=== PATIENT | male | born 1955 | race Hispanic/Latino ===

== ENCOUNTER 2017-02-24 14:33 | Inpatient (IN) | payer OTHER ==
--- NOTE | 2017-02-24 15:11 | C.PDOC ---
History Of Present Illness <Michael Reyes - Last Filed: 02/24/17 18:03> <Usha Chavez - Last Filed: 02/25/17 03:37> 61 y/o male with a hx of alcohol abuse, comes in for alcohol detox. Last drink was 2 hours ago. Patient denies SI, HI, or somatic complaints. (Michael Reyes) History Per: Patient History/Exam Limitations: no limitations Onset/Duration Of Symptoms: Hrs Current Symptoms Are (Timing): Still Present Suicide/Self Injury Attempted (Context): None Modifying Factor(s): Alcohol Severity: Mild Associated Symptoms: denies: Suicidal Thoughts, Suicidal Plan Involuntary Hold By: None Recent travel outside of the [place]: No Additional History Per: Patient <Michael Reyes - Last Filed: 02/24/17 18:03> <Usha Chavez - Last Filed: 02/25/17 03:37> Time Seen by Provider: 02/24/17 14:53 Chief Complaint (Nursing): Substance Abuse Past Medical History Reviewed: Historical Data, Nursing Documentation, Vital Signs Surgical History: Cholecystectomy Family History: States: Unknown Family Hx - Social History Hx Alcohol Use: Yes Hx Substance Use: No <Michael Reyes - Last Filed: 02/24/17 18:03> Vital Signs: Last Vital Signs Temp 98.3 F 02/25/17 00:17 Pulse 65 02/25/17 00:17 Resp 18 02/25/17 00:17 BP 127/78 02/25/17 00:17 Pulse Ox 98 02/25/17 00:17 Review Of Systems Except As Marked, All Systems Reviewed And Found Negative. Constitutional: Positive for: Other (Acute alcohol intoxication). Negative for : Fever, Chills Cardiovascular: Negative for: Chest Pain Respiratory: Negative for: Shortness of Breath Gastrointestinal: Negative for: Abdominal Pain Psych: Negative for: Suicidal ideation, Other (HI) <Agnes Reyesil - Last Filed: 02/24/17 18:03> Physical Exam - Physical Exam Appears: Non-toxic, No Acute Distress, Other (Alcohol intoxication, (+) AOB. No signs of trauma) Skin: Warm, Dry Head: Atraumatic, Normacephalic Oral Mucosa: Moist Chest: Symmetrical Cardiovascular: Rhythm Regular, No Murmur Respiratory: Normal Breath Sounds, No Rales, No Rhonchi, No Wheezing Gastrointestinal/Abdominal: Soft, No Tenderness Back: No CVA Tenderness Neurological/Psych: Other (awake and alert, no focal deficit) <Michael Reyes - Last Filed: 02/24/17 18:03> ED Course And Treatment - Laboratory Results Result Diagrams: 02/24/17 15:29 02/24/17 15:29 O2 Sat by Pulse Oximetry: 97 (RA) Pulse Ox Interpretation: Normal <Michael Reyes - Last Filed: 02/24/17 18:03> - Laboratory Results Result Diagrams: 02/24/17 15:29 02/24/17 15:29 <Usha Chavez - Last Filed: 02/25/17 03:37> Medical Decision Making <Mihcael Reyes - Last Filed: 02/24/17 18:03> <Usha Chavez - Last Filed: 02/25/17 03:37> Medical Decision Making: * Blood labs * UA Pt is medically cleared. 18:00. Patient will be re-evaluated at 19:30 for sobriety. (Michael Reyes) Disposition <Michael Reyes - Last Filed: 02/24/17 18:03> - Disposition Disposition Time: 20:00 <Usha Chavez - Last Filed: 02/25/17 03:37> - Disposition Disposition: HOSPITALIZED Condition: GOOD - Clinical Impression Clinical Impression: Alcohol dependence - Scribe Statement The provider has reviewed the documentation as recorded by the Scribe <Michael Reyes - Last Filed: 02/24/17 18:03> <Usha Chavez - Last Filed: 02/25/17 03:37> - Scribe Statement [email or web address] All medical record entries made by the Scribe were at my direction and personally dictated by me. I have reviewed the chart and agree that the record accurately reflects my personal performance of the history, physical exam, medical decision making, and the department course for this patient. I have also personally directed, reviewed, and agree with the discharge instructions and disposition. (Michael Reyes) Decision To Admit <Michael Reyes - Last Filed: 02/24/17 18:03> - Pt Status Changed To: Hospital Disposition Of: Inpatient - Admit Certification Admit to Inpatient:: After my assessment, the patient will require hospitalization for at least two midnights. This is because of the severity of symptoms shown, intensity of services needed, and/or the medical risk in this patient being treated as an outpatient. - InPatient: Physician Admission Certification: I certify that this patient requires 2 or more midnights of care for the following reason:: drug/alcohol detox - . Bed Request Type: Detox Admitting Physician: León Pereira <Usha Chavez - Last Filed: 02/25/17 03:37> - . Patient Diagnosis: Alcohol dependence
[2017-02-24 15:34] LABS: BASO % 0.5 % (0.0-2.0); EOS # 0.1 K/uL (0.0-0.7); EOS % 0.8 % (0.0-4.0); HEMATOCRIT 46.2 % (35.0-51.0); LYMPH # 1.2 K/uL (1.0-4.3); LYMPH % 18.9 % (20.0-40.0); MEAN CELL VOLUME 98.3 fL (80.0-94.0); MEAN CORPUSCULAR HEMOGLOBIN 34.6 pg (27.0-31.0); MEAN CORPUSCULAR HGB CONC 35.2 g/dL (33.0-37.0); MEAN PLATELET VOLUME 6.9 fL (7.2-11.7); MONO # 0.3 K/uL (0.0-0.8); MONO % 4.4 % (0.0-10.0); RED CELL DISTRIBUTION WIDTH 13.6 % (11.5-14.5); WHITE BLOOD COUNT 6.4 K/uL (4.8-10.8)
[2017-02-24 15:37] LABS: URINE BILIRUBIN NEGATIVE (NEGATIVE); URINE COLOR Yellow (YELLOW); URINE GLUCOSE (UA) NORMAL (Normal); URINE KETONE NEGATIVE (NEGATIVE); URINE LEUKOCYTE ESTERASE NEG Leu/uL (Negative); URINE PROTEIN NEGATIVE (NEGATIVE); URINE UROBILINOGEN NORMAL mg/dL (0.2-1.0)
[2017-02-24 15:38] LABS: WBC URINE < 1 /hpf (0-5)
[2017-02-24 15:39] LABS: RBC URINE < 1 /hpf (0-3); URINE BLOOD TRACE (NEGATIVE)
[2017-02-24 15:49] LABS: CHLORIDE 96 mmol/L (98-107); POTASSIUM 3.8 mmol/L (3.6-5.2); SODIUM 136 mmol/L (132-148)
[2017-02-24 15:51] LABS: AST/SGOT 137 U/L (17-59); BILIRUBIN,TOTAL 1.7 mg/dL (0.2-1.3); CARBON DIOXIDE 25 mmol/L (22-30); GFR AFRICAN-AMERICAN > 60
[2017-02-24 15:52] LABS: ALKALINE PHOSPHATASE 90 U/L (38-126); ALT/SGPT 105 U/L (21-72); BLOOD UREA NITROGEN 8 mg/dL (9-20); CALCIUM 7.7 mg/dl (8.6-10.4); GLUCOSE,RANDOM 88 mg/dL (75-110)
[2017-02-24 15:53] LABS: ALCOHOL SERUM 259 mg/dl (0-10)
--- NOTE | 2017-02-24 20:04 | PCM.BM ---
<Patty Mcfadden - Last Filed: 02/24/17 20:04> Treatment Plan Problems - Problems identified on initial assessmt Ineffective Coping Skills Date Initiated: 02/24/17 Time Initiated: 20:04 Assessment reference: NA Status: Active Treatment assets and liabiliti Patient Assests: ADL independent Patient Liabilities: substance abuse - Milieu Protocol Maintain good personal hygiene: daily Encourage regular showers, daily Remind patient to perform daily oral care, other Assist patient to perform ADL's Maintain personal safety: every shift Educate patient to report safety concerns to staff, every shift Monitor environment for contraband/sharps Medication safety: Monitor for expected outcome, potential side effects: every shift, Assess barriers to learning: every shift, Assess readiness for medication education: every shift <Eloina Zepeda - Last Filed: 02/25/17 10:02> - Diagnosis (1) Alcohol dependence Status: Acute Interventions: 02/25/17 10:02 * Assess 7x/week regarding severity of withdrawal * Educate regarding risks, benefits, side effects and alternatives of medications * Use Motivational Interviewing for abstinence * Use CBT for relapse prevention * Medication management for withdrawal symptoms * Encourage medication assisted treatment *
[2017-02-24] MEDS ORDERED: Aluminum Hydroxide/Magnesium Hydroxide Susp (30 mL) PO PRN (20:58)
--- NOTE | 2017-02-25 10:05 | PCM.PSYCH ---
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 The patient is here because he drinks more than 15 cans of beer plus more than half pint of liquor every day. He says he relapsed recently however he has been drinking since age 15 and he has a history of and currently has significant withdrawal symptoms. He avoided detox and rehabilitation other than 1 time in 1985 and he used to go to for 8 years and recently resumed. The patient denies drug use and he is not a smoker. He reports depressive symptoms, i.e. anhedonia, poor sleep, poor appetite, low energy, low self-esteem and sadness. He denies suicidal thoughts. No manic or psychotic symptoms but has anxiety He is overweight but has no medical problems otherwise. His liver enzymes are elevated. 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 Denies acute PTSD sxs Family psych history: One brother of alcohol-related complications. Another brother is in recovery from alcohol. Their mother also drank regularly. Medical history: Denied Current Medications: Active Medications Generic Name Dose Route Start Last Admin Trade Name Freq PRN Reason Stop Dose Admin Acetaminophen 650 mg 02/24/17 20:58 Tylenol 325mg Tab PO Q4H PRN Fever greater than 101 F Al Hydrox/Mg Hydrox/Simethicone 30 ml 02/24/17 20:58 Maalox 30 Ml PO TID PRN Indigestion / Heartburn Clonidine HCl 0.1 mg 02/24/17 20:57 Catapres PO Q4H PRN Symptoms of alcohol withdrawl Folic Acid 1 mg 02/25/17 10:00 Folic Acid PO DAILY GAL Gabapentin 100 mg 02/25/17 14:00 Neurontin PO TID GAL Lorazepam 1 mg 02/24/17 20:57 02/24/17 21:23 Ativan PO 1 mg Q4H PRN Administration Symptoms of alcohol withdrawl Lorazepam 0 mg 02/25/17 12:00 Ativan PO 03/01/17 11:59 .TAPER GAL Taper Mirtazapine 15 mg 02/25/17 22:00 Remeron PO HS [facility] Multivitamins 1 tab 02/25/17 10:00 Hexavitamin PO DAILY GAL Ondansetron HCl 4 mg 02/24/17 20:58 02/25/17 08:45 Zofran Tab PO 4 mg Q8 PRN Administration Nausea/Vomiting Tamsulosin HCl 0.4 mg 02/25/17 22:00 Flomax PO HS [facility] Thiamine HCl 100 mg 02/25/17 10:00 Vitamin B1 Tab PO DAILY GAL Past Psychiatric History - Past Psychiatric History Previous Treatment History: None Pertinent Medical Hx (Current Medical&Sleep Prob, Allergies): Allergies Allergy/AdvReac Type Severity Reaction Status Date / Time chlordiazepoxide AdvReac Verified 02/24/17 15:04 [From Librium] Alprazolam [Xanax] 0.5 mg PO TID 02/24/17 Review of Systems - Neurological Neurological: Dizziness, Tremor - Psychiatric Psychiatric: Abnormal Sleep Pattern, Anhedonia, Anxiety, Change in Appetite, Depression, Difficulty Concentrating, Irritability. absent: Hallucinations, Homicidal Ideation, Suicidal Ideation Mental Status Examination - Personal Presentation Personal Presentation: Looks stated age - Affect Affect: Constricted - Motor Activity Motor Activity: Calm - Reliability in Providing Information Reliability in Providing Information: Good - Speech Speech: Organized - Mood Mood: Depressed, Anxious - Formal Thought Process Formal Thought Process: No Impairment - Cognitive Functions Orientation: Person, Place, Situation, Time Sensorium: Alert Attention/Concentration: Attentive Estimate of Intelligence: Average Judgement: Intact, as evidence by: Insight regarding need for hospitalization Memory: Recent intact, as evidence by: Ability to recall events of the day, Remote intact, as evidenced by: Abilit to recall sig. life events - Risk Risk: Seizure, Withdrawal, Diminished functioning - Strength & Assets Inventory Strength & Assets Inventory: Family support, Employment history, Life experience , Cooperative - Limitations Limitations: Living alone DSM 5 DX - DSM 5 DSM 5 Diagnosis: Alcohol withdrawal Alcohol use d/o - severe Depressive d/o - unspecified - Recommended/Plan of Treatment Treatment Recommendations and Plan of Treatment: Ativan detox As needed medications Gabapentin for augmentation and anxiety Attend groups and activities Supportive therapy and psychoeducation [place] for abstinence CBT for relapse prevention Encourage MAT Refer to rehab or IOP Attend self-help groups as well Remeron and cbt/supportive tx for depression and anxiety 34 min Projected ELOS: 03/01/2017 Prognosis: fair Discharge Plan and Discharge Criteria: DC: No significant wdw sx and completion of detox protocol Referral: IOP and consider topamax or naltrexoen (if LFTs come down) - Smoking Cessation Smoking Cessation Initiated: No Reason for not providing: non-smoker
[2017-02-25] MEDS: Multiple Vitamins Tab PO SCH (10:06)
[2017-02-26] MEDS: Multiple Vitamins Tab PO SCH (09:17)
[2017-02-26] MEDS: Hydrocortisone 1% Cream (30 GM) TOP SCH ×2 (10:33→17:51)
[2017-02-26] MEDS: Bacitracin/Neomycin/Polymyxin Oint(30GM) TOP SCH ×2 (10:35→17:51)
--- NOTE | 2017-02-26 13:41 | PCM.PYCHPN ---
Psychiatric Progress Note - Psychiatric Progress Note Patient seen today, length of contact: 16 min Patient Chief Complaint: "So so" Problems Identified/Issues Discussed: The pt is seen, chart reviewed, case discussed with staff. The pt is compliant with medications and reports no side-effects. Symptoms are improving but needs more time to stabilize. After care discussed, support and psychoeducation given. Medication Change: Yes (detox changes daily) Medical Record Reviewed: Yes Mental Status Examination - Cognitive Function Orientation: Person, Place, Situation, Time Memory: Intact Attention: WNL Concentration: Poor Association: WNL Fund of Knowledge: WNL - Mood Mood: Depressed, Anxious - Affect Affect: Constricted - Speech Speech: Appropriate - Formal Thought Process Formal Thought Process: No Impairment - Suicidal Ideation Suicidal Ideation: No - Homicidal Ideation Homicidal Ideation: No Goal/Treatment Plan - Goal/Treatment Plan Need for Continued Stay: Discharge may exacerbated symptoms, Severe functional impairment Progress Toward Problem(s) and Goals/Treatment Plan: Ativan detox As needed medications Gabapentin for augmentation and anxiety Attend groups and activities Supportive therapy and psychoeducation [place] for abstinence CBT for relapse prevention Encourage MAT Refer to rehab or IOP Attend self-help groups as well Remeron and cbt/supportive tx for depression and anxiety Estimated Date of D/C: 03/01/17
[2017-02-27] MEDS: Multiple Vitamins Tab PO SCH (09:08)
[2017-02-27] MEDS: Bacitracin/Neomycin/Polymyxin Oint(30GM) TOP SCH ×2 (09:38→17:13)
[2017-02-27] MEDS: Hydrocortisone 1% Cream (30 GM) TOP SCH ×2 (09:38→17:13)
--- NOTE | 2017-02-27 10:33 | PCM.PYCHPN ---
Psychiatric Progress Note - Psychiatric Progress Note Patient seen today, length of contact: 16 min Patient Chief Complaint: i came to get help.' Problems Identified/Issues Discussed: Patient seen and evaluated, chart reviewed and discussed with the nurse. The patient reports improvement in his mood but still reports withdrawal symptoms including mild shakes, insomnia, anxiety, headaches and sweating. As per the nurse patient remained isolated and confined to his room. Patient denies any suicidal ideation or homicidal ideation. Patient is taking medications and denies any side effects. He needs more time to stabilize. Supportive therapy and psychoeducation were given. Medication Change: Yes (detox changes daily) Medical Record Reviewed: Yes Mental Status Examination - Cognitive Function Orientation: Person, Place, Situation, Time Memory: Intact Attention: WNL Concentration: Poor Association: WNL Fund of Knowledge: WNL - Mood Mood: Depressed, Anxious - Affect Affect: Constricted - Speech Speech: Appropriate - Formal Thought Process Formal Thought Process: No Impairment - Suicidal Ideation Suicidal Ideation: No - Homicidal Ideation Homicidal Ideation: No Goal/Treatment Plan - Goal/Treatment Plan Need for Continued Stay: Discharge may exacerbated symptoms, Severe functional impairment Progress Toward Problem(s) and Goals/Treatment Plan: As needed medications Add more sleep meds Gabapentin for augmentation Attend groups and activities Supportive therapy and psychoeducation [place] for abstinence CBT for relapse prevention Encourage MAT Refer to rehab or IOP Attend self-help groups as well Estimated Date of D/C: 03/01/17 - Smoking Cessation Smoking Cessation Initiated: No
[2017-02-28] MEDS: Bacitracin/Neomycin/Polymyxin Oint(30GM) TOP SCH ×2 (10:16→20:50)
[2017-02-28] MEDS: Multiple Vitamins Tab PO SCH (10:16)
[2017-02-28] MEDS: Hydrocortisone 1% Cream (30 GM) TOP SCH ×2 (10:16→20:50)
[2017-02-28 10:50] VITALS: RESP 18
--- NOTE | 2017-02-28 10:58 | PCM.PYCHPN ---
Psychiatric Progress Note - Psychiatric Progress Note Patient seen today, length of contact: 16 min Patient Chief Complaint: little better. Problems Identified/Issues Discussed: Patient seen and evaluated, chart reviewed and discussed with the nurse. The patient reports improvement in his mood and reports improvement in his sleep. He also reports improvement in the withdrawal symptoms. He denies any suicidal ideation or homicidal ideation. Patient is taking medications and denies any side effects. He needs more time to stabilize. Supportive therapy and psychoeducation were given. Medication Change: Yes (detox changes daily) Medical Record Reviewed: Yes Mental Status Examination - Cognitive Function Orientation: Person, Place, Situation, Time Memory: Intact Attention: WNL Concentration: Poor Association: WNL Fund of Knowledge: WNL - Mood Mood: Depressed, Anxious - Affect Affect: Constricted - Speech Speech: Appropriate - Formal Thought Process Formal Thought Process: No Impairment - Suicidal Ideation Suicidal Ideation: No - Homicidal Ideation Homicidal Ideation: No Goal/Treatment Plan - Goal/Treatment Plan Need for Continued Stay: Discharge may exacerbated symptoms, Severe functional impairment Progress Toward Problem(s) and Goals/Treatment Plan: As needed medications Add more sleep meds Gabapentin for augmentation Attend groups and activities Supportive therapy and psychoeducation [place] for abstinence CBT for relapse prevention Encourage MAT Refer to rehab or IOP Attend self-help groups as well Estimated Date of D/C: 03/01/17
[2017-03-01 05:43] VITALS: O2SAT 99
--- NOTE | 2017-03-01 08:54 | PCM.PYCHDC ---
Mental Status Examination - Mental Status Examination Orientation: Person Discharge Summary - Discharge Note Consultations:: List each consultation separately and include: 1. Reason for request. 2. Findings. 3. Follow-up Summary of Hospital Course include:: 1. Description of specific treatment plan utilized for patients during their course of treatmen. 2. Summarize the time- course for resolution of acute symptoms and/or regressed behaviors. 3. Describe issues identified and worked on during hospitalization. 4. Describe medication utilized. 5. Describe medical problems identified and treated. 6. 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 The patient is here because he drinks more than 15 cans of beer plus more than half pint of liquor every day. He says he relapsed recently however he has been drinking since age 15 and he has a history of and currently has significant withdrawal symptoms. He avoided detox and rehabilitation other than 1 time in 1985 and he used to go to for 8 years and recently resumed. The patient denies drug use and he is not a smoker. He reports depressive symptoms, i.e. anhedonia, poor sleep, poor appetite, low energy, low self-esteem and sadness. He denies suicidal thoughts. No manic or psychotic symptoms but has anxiety He is overweight but has no medical problems otherwise. His liver enzymes are elevated. 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 Denies acute PTSD sxs Family psych history: One brother of alcohol-related complications. Another brother is in recovery from alcohol. Their mother also drank regularly. Medical history: Denied - Diagnosis (1) Alcohol dependence Current Visit: Yes Status: Acute - Final Diagnosis (DSM 5) Condition upon Discharge: GOOD Disposition: HOME/ ROUTINE Follow-up Treatment Plan: Ativan detox As needed medications Gabapentin for augmentation and anxiety Attend groups and activities Supportive therapy and psychoeducation [place] for abstinence CBT for relapse prevention Encourage MAT Refer to rehab or IOP Attend self-help groups as well Remeron and cbt/supportive tx for depression and anxiety
[2017-03-01] MEDS: Hydrocortisone 1% Cream (30 GM) TOP SCH (09:50)
[2017-03-01] MEDS: Bacitracin/Neomycin/Polymyxin Oint(30GM) TOP SCH (09:51)
[2017-03-01] MEDS: Multiple Vitamins Tab PO SCH (09:51)
[2017-03-01 09:56] VITALS: BP 126/78; PULSE 89; TEMP 98
== END 2017-03-01 08:00 | disposition home or self-care (01) | DRG 895 ==
LOC: C.ER 14:33 → C.7D 19:37
PROVIDERS: ADMIT Psychiatry & Neurology Psychiatry; ATTEND Psychiatry & Neurology Psychiatry
PROC: HZ2ZZZZ Detoxification Services for Substance Abuse Treatment (ICD-10-PCS; principal; 2017-02-24)
PROC: HZ59ZZZ Individual Psychotherapy for Substance Abuse Treatment, Supportive (ICD-10-PCS; 2017-02-24)
PROC: HZ46ZZZ Group Counseling for Substance Abuse Treatment, Psychoeducation (ICD-10-PCS; 2017-02-24)
PROC: GZ3ZZZZ Medication Management (ICD-10-PCS; 2017-02-24)
DX: F10.230 Alcohol dependence with withdrawal, uncomplicated (principal); F32.9 Major depressive disorder, single episode, unspecified; F41.9 Anxiety disorder, unspecified; G47.00 Insomnia, unspecified; E66.3 Overweight

== ENCOUNTER 2017-04-15 11:13 | Inpatient (IN) | payer OTHER ==
[2017-04-15 11:14] VITALS: BMI 25.7
[2017-04-15 12:04] LABS: URINE BILIRUBIN NEGATIVE (NEGATIVE); URINE BLOOD NEGATIVE (NEGATIVE); URINE CLARITY Clear (Clear); URINE COLOR Colorless (YELLOW); URINE GLUCOSE (UA) NORMAL (Normal); URINE LEUKOCYTE ESTERASE NEG Leu/uL (Negative); URINE NITRATE NEGATIVE (NEGATIVE); URINE PROTEIN NEGATIVE (NEGATIVE); URINE UROBILINOGEN NORMAL mg/dL (0.2-1.0)
[2017-04-15 12:18] LABS: BASO # 0.1 K/uL (0.0-0.2); BASO % 1.2 % (0.0-2.0); EOS # 0.1 K/uL (0.0-0.7); EOS % 2.7 % (0.0-4.0); HEMOGLOBIN 16.7 g/dL (12.0-18.0); LYMPH # 1.1 K/uL (1.0-4.3); LYMPH % 24.4 % (20.0-40.0); MEAN CELL VOLUME 99.5 fL (80.0-94.0); MEAN CORPUSCULAR HEMOGLOBIN 35.2 pg (27.0-31.0); MEAN CORPUSCULAR HGB CONC 35.4 g/dL (33.0-37.0); MONO # 0.3 K/uL (0.0-0.8); NEUT # 2.9 K/uL (1.8-7.0); NEUT % 64.7 % (50.0-75.0); RBC 4.73 Mil/uL (4.40-5.90); RED CELL DISTRIBUTION WIDTH 13.2 % (11.5-14.5); WHITE BLOOD COUNT 4.5 K/uL (4.8-10.8)
--- NOTE | 2017-04-15 12:18 | C.PDOC ---
History Of Present Illness 61 year old male presents to the ED requesting detox for alcohol. Patient states he drinks alcohol daily and reports his last drink was today [employer]. Patient denies SI/HI, hallucinations, other physical complaints. Time Seen by Provider: 04/15/17 11:31 Chief Complaint (Nursing): Substance Abuse History Per: Patient History/Exam Limitations: no limitations Onset/Duration Of Symptoms: Hrs Current Symptoms Are (Timing): Still Present Suicide/Self Injury Attempted (Context): None Modifying Factor(s): Alcohol Associated Symptoms: denies: Depression, Suicidal Thoughts, Suicidal Plan Involuntary Hold By: None Recent travel outside of the [place]: No Additional History Per: Patient Past Medical History Reviewed: Historical Data, Nursing Documentation, Vital Signs Vital Signs: Last Vital Signs Temp 98.3 F 04/15/17 16:55 Pulse 81 04/15/17 16:55 Resp 18 04/15/17 16:55 BP 148/81 04/15/17 16:55 Pulse Ox 98 04/15/17 16:55 - Medical History PMH: Depression Denies: Diabetes, Hepatitis, HIV, HTN, Chronic Kidney Disease, Seizures, Sexually Transmitted Disease Surgical History: Cholecystectomy - [facility] Procedures DETOXIFICATION SERVICES FOR SUBSTANCE ABUSE TREATMENT (02/24/17) GROUP DEVELOPMENT AND PLANNING ENGINEER FOR SUBSTANCE ABUSE TREATMENT, PSYCHOEDUCATION (02/24/17) INDIV PSYCHOTHERAPY FOR SUBSTANCE ABUSE TREATMENT, SUPPORT (02/24/17) MEDICATION MANAGEMENT (02/24/17) Family History: States: Unknown Family Hx - Social History Hx Alcohol Use: Yes Hx Substance Use: No Review Of Systems Constitutional: Negative for: Fever, Chills Cardiovascular: Negative for: Chest Pain, Palpitations Respiratory: Negative for: Cough, Shortness of Breath Gastrointestinal: Negative for: Nausea, Vomiting, Abdominal Pain Musculoskeletal: Negative for: Back Pain Skin: Negative for: Rash Neurological: Negative for: Weakness, Numbness Psych: Negative for: Suicidal ideation Physical Exam - Physical Exam Appears: Non-toxic, No Acute Distress Skin: Normal Color, Warm, Dry Head: Atraumatic, Normacephalic Nose: No Discharge Oral Mucosa: Moist Neck: Normal ROM, Supple Chest: Symmetrical Cardiovascular: Rhythm Regular, No Murmur Respiratory: Normal Breath Sounds, No Rales, No Rhonchi, No Wheezing Gastrointestinal/Abdominal: Soft, No Tenderness Extremity: Normal ROM, No Pedal Edema, No Calf Tenderness, No Deformity Neurological/Psych: Oriented x3 ED Course And Treatment - Laboratory Results Result Diagrams: 04/15/17 11:51 04/15/17 11:51 O2 Sat by Pulse Oximetry: 20 Medical Decision Making Medical Decision Making: Impression : ETOH detox Plan: * UA * Blood work - drug screen Patient is medically cleared for detox. Disposition - Disposition Disposition: HOSPITALIZED Disposition Time: 12:30 Condition: STABLE - Clinical Impression Clinical Impression: Drug dependence, Alcohol dependence - Scribe Statement The provider has reviewed the documentation as recorded by the Scribe Zohaib Wills All medical record entries made by the Scribe were at my direction and personally dictated by me. I have reviewed the chart and agree that the record accurately reflects my personal performance of the history, physical exam, medical decision making, and the department course for this patient. I have also personally directed, reviewed, and agree with the discharge instructions and disposition.
[2017-04-15 12:19] LABS: ALB/GLOB RATIO 1.4 (1.0-2.1); ALBUMIN 4.1 g/dL (3.5-5.0); ALT/SGPT 57 U/L (21-72); AST/SGOT 76 U/L (17-59); BLOOD UREA NITROGEN 8 mg/dL (9-20); CALCIUM 8.2 mg/dl (8.6-10.4); GFR AFRICAN-AMERICAN > 60; GFR NON-AFRICAN AMERICAN > 60
[2017-04-15 12:26] LABS: BARBITURATES, UR NEGATIVE (NEGATIVE); BENZODIAZEPINES, UR NEGATIVE (NEGATIVE); OPIATES, UR NEGATIVE (NEGATIVE); PHENCYCLIDINE, UR NEGATIVE (NEGATIVE)
--- NOTE | 2017-04-15 18:16 | PCM.BM ---
<Isela Reddy - Last Filed: 04/15/17 18:14> Treatment Plan Problems - Problems identified on initial assessmt Alcohol dependence Date Initiated: 04/15/17 Time Initiated: 17:30 Assessment reference: NA Status: Active Treatment assets and liabiliti Patient Assests: cooperative, ADL independent, negotiates basic needs Patient Liabilities: live alone, substance abuse - Milieu Protocol Maintain good personal hygiene: daily Encourage regular showers, daily Remind patient to perform daily oral care, daily Assist patient to perform ADL's Conduct patient checks and document Observation sheet: Q15 minutes Maintain personal safety: every shift Educate patient to report safety concerns to staff, every shift Monitor environment for contraband/sharps Medication safety: Monitor for expected outcome, potential side effects: every shift, Assess barriers to learning: every shift, Assess readiness for medication education: every shift <Cassie Hayes - Last Filed: 04/20/17 08:39> Family Contact Family involvement: Famliy/SO not involved Family contact: Patient agrees to contact - Goals for Treatment Patient goals for treatment: COMPLETE DETOX AND ATTEND AA MEETINGS IN CONJUNCTION WITH O/P THERAPY. Discharge/Continuing Care - Education Needs Education Needs: Patient Medication, Patient Diagnosis/Disease Process, Patient Coping Skills, Patient Anger Management skills, Patient Placement options, Patient Community resources - Discharge Discharge Criteria: No longer exhibiting s/s of withdrawal, Reduction of target symptoms Discharge to:: Home - Treatment Team Participation Patient/Family/SO Statement: 04/20/17 08:39 "I HAVE A SPONSOR IN AA BUT I'LL SUPPLEMENT MEETINGS WITH OUTPATIENT..." Discussed with Family/SO: No Was Patient/Family/SO present at Treatment Team Meeting: Yes <Eloina Zepeda - Last Filed: 04/21/17 08:47> - Diagnosis (1) Alcohol dependence Status: Acute Interventions: 04/21/17 08:47 * Assess 7x/week regarding severity of withdrawal * Educate regarding risks, benefits, side effects and alternatives of medications * Use Motivational Interviewing for abstinence * Use CBT for relapse prevention * Medication management for withdrawal symptoms * Encourage medication assisted treatment *
[2017-04-16] MEDS: Multiple Vitamins Tab PO SCH (10:03)
[2017-04-16] MEDS: Aluminum Hydroxide/Magnesium Hydroxide Susp (30 mL) PO PRN (13:55)
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
[2017-04-17] MEDS: Multiple Vitamins Tab PO SCH (09:37)
[2017-04-17] MEDS: Aluminum Hydroxide/Magnesium Hydroxide Susp (30 mL) PO PRN ×2 (10:07→15:39)
--- NOTE | 2017-04-17 11:19 | RAD ---
PROCEDURE: Left Hand Radiographs. HISTORY: swelling to left hand COMPARISON: None. FINDINGS: BONES: Normal. No fracture. JOINTS: Arthritic and degenerative changes are noted at the joint of the left hand. SOFT TISSUES: Normal. OTHER FINDINGS: None. IMPRESSION: No evidence of acute fracture or dislocation. Arthritic and degenerative changes.
[2017-04-18] MEDS: Multiple Vitamins Tab PO SCH (10:00)
[2017-04-18] MEDS: Aluminum Hydroxide/Magnesium Hydroxide Susp (30 mL) PO PRN (10:58)
--- NOTE | 2017-04-18 21:00 | PCM.PYCHPN ---
Psychiatric Progress Note - Psychiatric Progress Note Patient seen today, length of contact: 15 MIN Patient Chief Complaint: I AM FEELING BETTER BUT I NEED TO BE DISCHARGED EARLY WEDNESDAY. Problems Identified/Issues Discussed: POST ACUTE WITHDRAWAL SYNDROME AA MEETINGS SINCE HE RETIRED WHAT GTO DO WITH HIS FREE TIME Medical Problems: NOTHING NEW Diagnostic Results: REVIEWED DSM 5 Symptoms Update: LESS ANXIOUS LESS DEPRESSED HOPEFUL Medication Change: No Medical Record Reviewed: Yes Mental Status Examination - Cognitive Function Orientation: Person, Place, Situation, Time Memory: Intact Attention: WNL Concentration: WNL Association: WNL Fund of Knowledge: WNL - Mood Mood: Depressed, Anxious - Affect Affect: Constricted - Speech Speech: Appropriate - Suicidal Ideation Suicidal Ideation: No - Homicidal Ideation Homicidal Ideation: No Goal/Treatment Plan - Goal/Treatment Plan Need for Continued Stay: Discharge may exacerbated symptoms Progress Toward Problem(s) and Goals/Treatment Plan: ALCOHOL WITHDRAWAL LIBRIUM TAPER ALCOHOL USE DISORDER ID CBT GROUP.MILIEU RECREATIONAL THERAPY SUPPORTIVE PSYCHOTHERAPY Estimated Date of D/C: 04/19/17 - Smoking Cessation Smoking Cessation Initiated: Yes
--- NOTE | 2017-04-18 21:07 | PCM.PYCHPN ---
Psychiatric Progress Note - Psychiatric Progress Note Patient seen today, length of contact: 15 MIN Patient Chief Complaint: MY HAND IS SWOLLEN Problems Identified/Issues Discussed: AFTERCARE IOP AA MEETINGS PLANS FOR THE FUTURE Medical Problems: EDEMATOUS LEFT HAND Diagnostic Results: XRAY NO FRACTURE ARTHRITIC CHANGES DSM 5 Symptoms Update: ANXIOUS Medication Change: Yes (LIBRIUM TAPER) Medical Record Reviewed: Yes Mental Status Examination - Cognitive Function Orientation: Person, Place, Situation, Time Memory: Intact Attention: WNL Association: WN Fund of Knowledge: WNL - Mood Mood: Depressed, Anxious - Affect Affect: Constricted - Speech Speech: Appropriate - Formal Thought Process Formal Thought Process: No Impairment - Suicidal Ideation Suicidal Ideation: No Goal/Treatment Plan - Goal/Treatment Plan Need for Continued Stay: Discharge may exacerbated symptoms Progress Toward Problem(s) and Goals/Treatment Plan: ALCOHOL WITHDRAWAL LIBRIUM TAPER ALCOHOL USE DISORDER DC CBT GROUP.MILIEU RECREATIONAL THERAPY SUPPORTIVE PSYCHOTHERAPY Estimated Date of D/C: 04/19/17 - Smoking Cessation Smoking Cessation Initiated: Yes
[2017-04-19] MEDS: Multiple Vitamins Tab PO SCH (09:42)
[2017-04-19] MEDS ORDERED: Pneumococcal 23-Valent Vaccine IM ONE (10:00)
[2017-04-19] MEDS ORDERED: Influenza Vaccine 60 mcg/0.5 mL SYR (4YR UP) IM ONE (10:00)
--- NOTE | 2017-04-19 10:04 | PCM.PYCHPN ---
Psychiatric Progress Note - Psychiatric Progress Note Patient seen today, length of contact: 15 MIN Patient Chief Complaint: I am feeling little anxious.' Problems Identified/Issues Discussed: Patient seen and evaluated, chart reviewed and discussed with the nurse. Patient reports improvement in the withdrawal symptoms but still reports anxiety. He reports irritable mood but denies any feelings of hopelessness and helplessness. He denies any SI/HI/AVH. Patient remained isolated, confined and withdrawn. He is taking medication and denies any side effects. He needs more time for stabilization. Supportive therapy and psychoeducation were given. Medication Change: Yes (LIBRIUM TAPER) Medical Record Reviewed: Yes Mental Status Examination - Cognitive Function Orientation: Person, Place, Situation, Time Memory: Intact Attention: WNL Association: WNL Fund of Knowledge: Poor - Mood Mood: Depressed, Anxious - Affect Affect: Constricted - Speech Speech: Appropriate - Formal Thought Process Formal Thought Process: No Impairment - Suicidal Ideation Suicidal Ideation: No - Homicidal Ideation Homicidal Ideation: No Goal/Treatment Plan - Goal/Treatment Plan Need for Continued Stay: Discharge may exacerbated symptoms Progress Toward Problem(s) and Goals/Treatment Plan: Alcohol use disorder, severe, dependence Alcohol withdrawal symptoms, Pain in left hand PTSD chronic Depressive disorder unspecified type [facility] Gabapentin for augmentation As needed meds and vitamins Attend groups and activities WA for abstinence and CBT for relapse prevention Support and psychoeducation Consider and encourage MAT XRay of Left hand Refer to after care Estimated Date of D/C: 04/19/17 - Smoking Cessation Smoking Cessation Initiated: No
[2017-04-19] MEDS: Aluminum Hydroxide/Magnesium Hydroxide Susp (30 mL) PO PRN ×2 (13:11→21:03)
--- NOTE | 2017-04-20 08:38 | PCM.PYCHDC ---
Mental Status Examination - Mental Status Examination Orientation: Person, Place, Situation, Time Discharge Summary - Discharge Note Reason for Hospitalization: Alcohol detox Consultations:: List each consultation separately and include: 1. Reason for request. 2. Findings. 3. Follow-up Summary of Hospital Course include:: 1. Description of specific treatment plan utilized for patients during their course of treatmen. 2. Summarize the time- course for resolution of acute symptoms and/or regressed behaviors. 3. Describe issues identified and worked on during hospitalization. 4. Describe medication utilized. 5. Describe medical problems identified and treated. 6. Reassessment of suicide risk Summary of Hospital Course: The pt was admitted and started on treatment with psychotherapy, support, psychoeducation and medications. AR and CBT used. The pt attended groups and activities, as well as milieu therapy. All the risks and benefits of medications are discussed and the patient understood and agreed. The pt improved with the treatments provided. After care discussed with the patient. He will go to [facility] program Warned about risks of benzos - Final Diagnosis (DSM 5) Condition upon Discharge: IMPROVED DSM 5: Alcohol use disorder, severe, dependence Alcohol withdrawal symptoms, Pain in left hand PTSD chronic Depressive disorder unspecified type Disposition: HOME/ ROUTINE Follow-up Treatment Plan: Continue below medications after discharge. Follow after care plan as discussed. Use relapse prevention skills Return to ER or call 911 if suicidal, homicidal or symptoms relapse. Stay away from stress, alcohol and drugs. See primary doctor regularly and get labs. Prescriptions/Medication Reconciliation: Gabapentin [Neurontin] 300 mg PO TID #90 cap Multivitamins [Hexavitamin] 1 tab PO DAILY #30 tab traZODone [Desyrel] 50 mg PO HS PRN #30 tab PRN Reason: Insomnia - Smoking Cessation Smoking Cessation Medication prescribed: No - Antipsychotic Medications Pt discharged on 2 or more routine antipsychotic medications: No
[2017-04-20 08:54] VITALS: BP 135/80; PULSE 80; RESP 20; TEMP 98.8; O2SAT 99
[2017-04-20] MEDS: Multiple Vitamins Tab PO SCH (09:04)
== END 2017-04-20 09:05 | disposition home or self-care (01) | DRG 895 ==
LOC: C.ER 11:13 → C.7D 16:47
PROVIDERS: ADMIT Psychiatry & Neurology Psychiatry; ATTEND Psychiatry & Neurology Psychiatry
PROC: HZ2ZZZZ Detoxification Services for Substance Abuse Treatment (ICD-10-PCS; principal; 2017-04-15)
PROC: HZ59ZZZ Individual Psychotherapy for Substance Abuse Treatment, Supportive (ICD-10-PCS; 2017-04-15)
PROC: HZ46ZZZ Group Counseling for Substance Abuse Treatment, Psychoeducation (ICD-10-PCS; 2017-04-15)
PROC: GZ3ZZZZ Medication Management (ICD-10-PCS; 2017-04-15)
DX: F10.230 Alcohol dependence with withdrawal, uncomplicated (principal); F32.9 Major depressive disorder, single episode, unspecified; F43.12 Post-traumatic stress disorder, chronic; M19.042 Primary osteoarthritis, left hand; E66.3 Overweight; Z91.410 Personal history of adult physical and sexual abuse

== ENCOUNTER 2018-04-13 13:30 | Emergency (ER) | payer OTHER ==
[2018-04-13 13:30] VITALS: BMI 27.1
[2018-04-13 14:22] VITALS: BP 100/60; PULSE 79; RESP 16; TEMP 98.3; O2SAT 95
== END 2018-04-13 14:20 | disposition left against medical advice (07) ==
LOC: C.ER 13:30
DX: Z02.89 Encounter for other administrative examinations (principal); F19.10 Other psychoactive substance abuse, uncomplicated

== ENCOUNTER 2018-05-15 12:48 | Inpatient (IN) | payer OTHER ==
[2018-05-15 12:49] VITALS: BMI 27.1
--- NOTE | 2018-05-15 13:36 | C.PDOC ---
History Of Present Illness 63 y/o male with PMH of substance abuse, alcohol abuse, depression presents to ED requesting detox from alcohol and xanax. Last use this morning. Tolerating PO per baseline. Admits to intermittent visual hallucinations. No somatic c omplaints. No SI, HI, fever, chills, abdominal pain, chest pain, SOB, nausea, vomiting, seizure, weakness, numbness, paresthesia, or any other associated symptoms. Time Seen by Provider: 05/15/18 13:18 Chief Complaint (Nursing): Substance Abuse Past Medical History Vital Signs: Last Vital Signs Temp 98.5 F 05/15/18 13:04 Pulse 71 05/15/18 13:04 Resp 18 05/15/18 13:04 BP 107/68 05/15/18 13:04 Pulse Ox 100 05/15/18 13:04 - Medical History PMH: Depression Denies: Diabetes, Hepatitis, HIV, HTN, Chronic Kidney Disease, Seizures, Sexually Transmitted Disease Surgical History: Cholecystectomy - [facility] Procedures DETOXIFICATION SERVICES FOR SUBSTANCE ABUSE TREATMENT (04/15/17) GROUP CLINICAL NURSE FOR SUBSTANCE ABUSE TREATMENT, PSYCHOEDUCATION (04/15/17) INDIV PSYCHOTHERAPY FOR SUBSTANCE ABUSE TREATMENT, SUPPORT (04/15/17) MEDICATION MANAGEMENT (04/15/17) Family History: States: Unknown Family Hx - Social History Hx Alcohol Use: Yes Hx Substance Use: Yes - Immunization History Hx Tetanus Toxoid Vaccination: No Hx Influenza Vaccination: No Hx Pneumococcal Vaccination: No Review Of Systems Except As Marked, All Systems Reviewed And Found Negative. Constitutional: Negative for: Fever, Chills Eyes: Negative for: Vision Change ENT: Negative for: Nose Discharge, Nose Congestion Cardiovascular: Negative for: Chest Pain, Palpitations Respiratory: Negative for: Cough, Shortness of Breath Gastrointestinal: Negative for: Nausea, Vomiting, Abdominal Pain Genitourinary: Negative for: Dysuria, Frequency, Hematuria Musculoskeletal: Negative for: Neck Pain, Back Pain Skin: Negative for: Rash Neurological: Negative for: Weakness, Numbness, Headache, Dizziness Physical Exam - Physical Exam Appears: Well, Non-toxic, No Acute Distress Skin: Normal Color, Warm, Dry Head: Atraumatic, Normacephalic Eye(s): bilateral: Normal Inspection, PERRL, EOMI Nose: Normal Oral Mucosa: Moist Throat: Normal Neck: Normal, Normal ROM, No Midline Cervical Tenderness, No Paracervical Tenderness Cardiovascular: Rhythm Regular Respiratory: Normal Breath Sounds Gastrointestinal/Abdominal: Normal Exam, Bowel Sounds (normoactive), Soft, No Tenderness Back: Normal Inspection, No CVA Tenderness Extremity: Normal ROM, Capillary Refill (<2s) Extremity: Bilateral: Atraumatic, Normal ROM Pulses: Left Radial: Normal, Right Radial: Normal Neurological/Psych: Oriented x3, Normal Speech, Normal Motor, Normal Sensation Gait: Steady ED Course And Treatment - Laboratory Results Result Diagrams: 05/15/18 14:10 05/15/18 14:10 Lab Interpretation: No Acute Changes ECG: Viewed By Me (Interpreted by ED attending Dr Antony) ECG Interpretation: No Acute Changes Interpretation Of ECG: Rate 74; NSR; LAD; No STEMI, nonspecific ST/T wave changes Rate From EC O2 Sat by Pulse Oximetry: 100 - Other Rad CXR X-Ray: Viewed By Me, Read By Radiologist Interpretation: Findings: Mild patchy increased markings at the right lung base. Heart size within normal limits. Impression: Mild patchy increased markings at the right lung base. Medical Decision Making Medical Decision Making: Initial Plan: * CBC, CMP * MG, Phos * Acetaminophen, Salicylate * Alcohol Level * UA * UDS * EKG * CXR Labwork unremarkable UDS positive for cannabinoids, benzodiazepines Alcohol level 170 EKG no acute ischemic changes CXR no active disease 15:20 Patient is medically cleared for admission. Will be admitted under Dr. Quiroga for detox, per crisis team. Disposition - Disposition Disposition: HOSPITALIZED Disposition Time: 15:20 Condition: STABLE - Clinical Impression Clinical Impression: Alcohol intoxication, Medical clearance for psychiatric admission
[2018-05-15 13:43] LABS: SQUAMOUS EPITHIAL < 1 /hpf (0-5); URINE BILIRUBIN NEGATIVE (NEGATIVE); URINE BLOOD NEGATIVE (NEGATIVE); URINE CLARITY Clear (Clear); URINE COLOR Straw (YELLOW); URINE GLUCOSE (UA) NORMAL (Normal); URINE LEUKOCYTE ESTERASE NEG Leu/uL (Negative); URINE PROTEIN NEGATIVE (NEGATIVE); URINE UROBILINOGEN NORMAL mg/dL (0.2-1.0)
[2018-05-15 13:48] LABS: BARBITURATES, UR NEGATIVE (NEGATIVE); OPIATES, UR NEGATIVE (NEGATIVE); PHENCYCLIDINE, UR NEGATIVE (NEGATIVE)
[2018-05-15 13:50] LABS: BENZODIAZEPINES, UR POSITIVE (NEGATIVE)
[2018-05-15 14:15] LABS: BASO % 1.1 % (0.0-2.0); EOS # 0.1 K/uL (0.0-0.7); EOS % 2.6 % (0.0-4.0); HEMOGLOBIN 15.5 g/dL (12.0-18.0); LYMPH # 1.4 K/uL (1.0-4.3); LYMPH % 32.4 % (20.0-40.0); MEAN CORPUSCULAR HGB CONC 33.7 g/dL (33.0-37.0); MEAN PLATELET VOLUME 7.7 fL (7.2-11.7); MONO # 0.4 K/uL (0.0-0.8); MONO % 8.5 % (0.0-10.0); NEUT # 2.4 K/uL (1.8-7.0); NEUT % 55.4 % (50.0-75.0); NRBC % 0.1 % (0.0-2.0); RBC 4.7 Mil/uL (4.40-5.90); RED CELL DISTRIBUTION WIDTH 12.1 % (11.5-14.5); WHITE BLOOD COUNT 4.3 K/uL (4.8-10.8)
[2018-05-15 14:37] LABS: ACETAMINOPHEN < 10.0 ug/mL (10.0-30.0); ALB/GLOB RATIO 1.9 (1.0-2.1); ALBUMIN 4.4 g/dL (3.5-5.0); ALT/SGPT 59 U/L (21-72); AST/SGOT 59 U/L (17-59); BLOOD UREA NITROGEN 11 mg/dL (9-20); CALCIUM 8.5 mg/dl (8.6-10.4); GFR NON-AFRICAN AMERICAN > 60; SALICYLATE < 1.0 mg/dL 1
--- NOTE | 2018-05-15 18:36 | PCM.BM ---
<Lauren Mckinley - Last Filed: 05/15/18 18:32> Treatment Plan Problems - Problems identified on initial assessmt Low motivation to change Date Initiated: 05/15/18 Time Initiated: 18:34 Assessment reference: NA Status: Active denial Date Initiated: 05/15/18 Time Initiated: 18:34 Assessment reference: NA Status: Active Knowledge deficit: Alcohol Use Date Initiated: 05/15/18 Time Initiated: 18:34 Assessment reference: NA Status: Active Treatment assets and liabiliti Patient Assests: cooperative, ADL independent, negotiates basic needs, cognitively intact Patient Liabilities: substance abuse (Alcohol) - Milieu Protocol Maintain good personal hygiene: daily Encourage regular showers, daily Remind patient to perform daily oral care, daily Assist patient to perform ADL's Conduct patient checks and document Observation sheet: Q15 minutes Maintain personal safety: every shift Educate patient to report safety concerns to staff, every shift Monitor environment for contraband/sharps Medication safety: Monitor for expected outcome, potential side effects: every shift, Assess barriers to learning: every shift, Assess readiness for medication education: every shift <Cassie Hayes - Last Filed: 05/18/18 12:05> Family Contact Family involvement: Famliy/SO not involved - Goals for Treatment Patient goals for treatment: Complete detox and transition to outpatient therapy program. Discharge/Continuing Care - Education Needs Education Needs: Patient Medication, Patient Diagnosis/Disease Process, Patient Coping Skills, Patient Anger Management skills, Patient Placement options, Patient Community resources - Discharge Discharge Criteria: No longer exhibiting s/s of withdrawal, Reduction of target symptoms Discharge to:: Home - Treatment Team Participation Patient/Family/SO Statement: 05/18/18 12:06 "I'll go to [facility]...I ain't got a problem with that..." Discussed with Family/SO: No Was Patient/Family/SO present at Treatment Team Meeting: Yes <Eloina Zepeda - Last Filed: 05/18/18 13:51> - Diagnosis (1) Alcohol dependence Status: Acute Interventions: 05/17/18 13:51 * Assess 7x/week regarding severity of withdrawal * Educate regarding risks, benefits, side effects and alternatives of medications * Use Motivational Interviewing for abstinence * Use CBT for relapse prevention * Medication management for withdrawal symptoms * Encourage medication assisted treatment *
--- NOTE | 2018-05-15 18:47 | RAD ---
Chest x-ray two views HISTORY: Detox. Comparison: None available. Findings: Mild patchy increased markings at the right lung base. Heart size within normal limits. Impression: Mild patchy increased markings at the right lung base.
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
[2018-05-16] MEDS: Multiple Vitamins Tab PO SCH (11:06)
[2018-05-16] MEDS ORDERED: Vitamins A & D Oint UD Foilpak TOP PRN (19:31)
[2018-05-17] MEDS: Multiple Vitamins Tab PO SCH (09:40)
--- NOTE | 2018-05-17 12:01 | PCM.PYCHPN ---
Psychiatric Progress Note - Psychiatric Progress Note Patient seen today, length of contact: 16 min Patient Chief Complaint: "I'm sweaty, shaky" Problems Identified/Issues Discussed: The pt is seen, chart reviewed, case discussed with staff. The pt is compliant with medications and reports no side-effects. Symptoms are improving but needs more time to stabilize. Pt attends groups and activities. Support given, psycho-education provided. After care discussed. Medication Change: Yes (detox changes daily) Medical Record Reviewed: Yes Mental Status Examination - Cognitive Function Orientation: Person, Place, Situation, Time Memory: Intact Attention: WNL Concentration: Poor Association: WNL Fund of Knowledge: WNL - Mood Mood: Depressed, Anxious - Affect Affect: Constricted - Speech Speech: Appropriate - Formal Thought Process Formal Thought Process: No Impairment - Suicidal Ideation Suicidal Ideation: No - Homicidal Ideation Homicidal Ideation: No Goal/Treatment Plan - Goal/Treatment Plan Need for Continued Stay: Discharge may exacerbated symptoms, Severe functional impairment Progress Toward Problem(s) and Goals/Treatment Plan: Ativan detox continues Gabapentin for augmentation Remeron for sleep and mood As needed meds and vitamins Attend groups and activities [place] for abstinence and CBT for relapse prevention Support and psychoeducation Consider and encourage MAT Refer to after care - inpatient or IOP/AA MAT (naltrexone, antabuse etc) recommended but he is still unsure Estimated Date of D/C: 05/20/18
[2018-05-18] MEDS: Multiple Vitamins Tab PO SCH (09:16)
--- NOTE | 2018-05-18 13:51 | PCM.PYCHPN ---
Psychiatric Progress Note - Psychiatric Progress Note Patient seen today, length of contact: 17 min Patient Chief Complaint: "I'm still withdrawing" Problems Identified/Issues Discussed: The pt is seen, chart reviewed, case discussed with staff. Support and psychoeducation given, CBT and [place] used briefly No new symptoms reported, improving slowly and needs more time No SEs from medications, risks discussed. After care discussed Medication Change: Yes (detox changes daily) Medical Record Reviewed: Yes Mental Status Examination - Cognitive Function Orientation: Person, Place, Situation, Time Memory: Intact Attention: WNL Concentration: Poor Association: WNL Fund of Knowledge: WNL - Mood Mood: Depressed, Anxious - Affect Affect: Constricted - Speech Speech: Appropriate - Formal Thought Process Formal Thought Process: No Impairment - Suicidal Ideation Suicidal Ideation: No - Homicidal Ideation Homicidal Ideation: No Goal/Treatment Plan - Goal/Treatment Plan Need for Continued Stay: Discharge may exacerbated symptoms, Severe functional impairment Progress Toward Problem(s) and Goals/Treatment Plan: Ativan detox continues Gabapentin for augmentation Remeron for sleep and mood As needed meds and vitamins Attend groups and activities [place] for abstinence and CBT for relapse prevention Support and psychoeducation Consider and encourage MAT Refer to after care - inpatient or IOP/AA MAT (naltrexone, antabuse etc) recommended but he is still unsure Estimated Date of D/C: 05/20/18
[2018-05-18] MEDS: Pantoprazole 20 mg EC Tab PO SCH (17:37)
--- NOTE | 2018-05-18 22:35 | CARD ---
APPROVED REPORT Date of service: 05/15/2018 EKG Measurement Heart [id number] <Conclusion> Normal sinus rhythm Left axis deviation Inferior infarct, age undetermined Abnormal ECG
[2018-05-19] MEDS: Multiple Vitamins Tab PO SCH (09:14)
[2018-05-19] MEDS: Pantoprazole 20 mg EC Tab PO SCH (09:14)
--- NOTE | 2018-05-19 11:54 | PCM.PYCHPN ---
Psychiatric Progress Note - Psychiatric Progress Note Patient seen today, length of contact: 16 min Patient Chief Complaint: "I'm not well yet, anxious" Problems Identified/Issues Discussed: The pt is seen, chart reviewed, case discussed with staff. Patient states that he is ready and willing to "dig in towards" quitting. The pt is compliant with medications and reports no side-effects. Symptoms are improving but needs more time to stabilize. Pt attends groups and activities. Support given, psycho-education provided. After care discussed. He is aloof but agreed with [facility] for now Medication Change: Yes (detox changes daily) Medical Record Reviewed: Yes Mental Status Examination - Cognitive Function Orientation: Person, Place, Situation, Time Memory: Intact Attention: WNL Concentration: Poor Association: Loose Fund of Knowledge: WNL - Mood Mood: Depressed, Anxious - Affect Affect: Constricted - Speech Speech: Appropriate - Formal Thought Process Formal Thought Process: No Impairment - Suicidal Ideation Suicidal Ideation: No - Homicidal Ideation Homicidal Ideation: No Goal/Treatment Plan - Goal/Treatment Plan Need for Continued Stay: Discharge may exacerbated symptoms, Severe functional impairment Progress Toward Problem(s) and Goals/Treatment Plan: Ativan detox continues Gabapentin for augmentation Remeron for sleep and mood As needed meds and vitamins Attend groups and activities [place] for abstinence and CBT for relapse prevention Support and psychoeducation Consider and encourage MAT Refer to after care - inpatient or IOP/AA MAT (naltrexone, antabuse etc) recommended, patient apprehensive about taking in any foreign substances when he is clean. Estimated Date of D/C: 05/20/18
[2018-05-19 18:49] VITALS: TEMP 97.6
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
[2018-05-20 08:17] VITALS: BP 155/98; PULSE 73; RESP 20; O2SAT 98
== END 2018-05-20 08:15 | disposition home or self-care (01) | DRG 895 ==
LOC: C.ER 12:48 → C.7D 16:08
PROVIDERS: ADMIT Psychiatry & Neurology Psychiatry; ATTEND Psychiatry & Neurology Psychiatry
PROC: HZ2ZZZZ Detoxification Services for Substance Abuse Treatment (ICD-10-PCS; principal; 2018-05-15)
PROC: HZ52ZZZ Individual Psychotherapy for Substance Abuse Treatment, Cognitive-Behavioral (ICD-10-PCS; 2018-05-15)
PROC: HZ59ZZZ Individual Psychotherapy for Substance Abuse Treatment, Supportive (ICD-10-PCS; 2018-05-15)
PROC: HZ56ZZZ Individual Psychotherapy for Substance Abuse Treatment, Psychoeducation (ICD-10-PCS; 2018-05-15)
DX: F10.231 Alcohol dependence with withdrawal delirium (principal); F32.9 Major depressive disorder, single episode, unspecified; F43.12 Post-traumatic stress disorder, chronic; Z91.410 Personal history of adult physical and sexual abuse; E66.3 Overweight

== ENCOUNTER 2018-08-22 14:19 | Emergency (ER) | payer OTHER ==
[2018-08-22 14:19] VITALS: BMI 38.0
[2018-08-22 14:30] VITALS: BP 122/83; PULSE 75; RESP 18; TEMP 98.6; O2SAT 95
[2018-08-22 15:40] LABS: BASO # 0.1 K/uL (0.0-0.2); BASO % 0.9 % (0.0-2.0); EOS # 0.2 K/uL (0.0-0.7); EOS % 3.4 % (0.0-4.0); HEMOGLOBIN 16.6 g/dL (12.0-18.0); LYMPH # 1.9 K/uL (1.0-4.3); LYMPH % 27.9 % (20.0-40.0); MEAN CORPUSCULAR HEMOGLOBIN 35.4 pg (27.0-31.0); MEAN CORPUSCULAR HGB CONC 35.1 g/dL (33.0-37.0); MEAN PLATELET VOLUME 7.2 fL (7.2-11.7); MONO # 0.5 K/uL (0.0-0.8); MONO % 7.9 % (0.0-10.0); NEUT # 4.1 K/uL (1.8-7.0); NEUT % 59.9 % (50.0-75.0); NRBC % 0.1 % (0.0-2.0); RBC 4.7 Mil/uL (4.40-5.90); RED CELL DISTRIBUTION WIDTH 14.8 % (11.5-14.5)
[2018-08-22 15:49] LABS: MEAN CELL VOLUME 100.8 fL (80.0-94.0); WHITE BLOOD COUNT 6.9 K/uL (4.8-10.8)
[2018-08-22 15:58] LABS: URINE BILIRUBIN NEGATIVE (NEGATIVE); URINE BLOOD NEGATIVE (NEGATIVE); URINE CLARITY Clear (Clear); URINE COLOR Yellow (YELLOW); URINE GLUCOSE (UA) NORMAL (Normal); URINE LEUKOCYTE ESTERASE NEG Leu/uL (Negative); URINE PROTEIN NEGATIVE (NEGATIVE); URINE UROBILINOGEN NORMAL mg/dL (0.2-1.0)
[2018-08-22 16:01] LABS: ALB/GLOB RATIO 1.6 (1.0-2.1); ALBUMIN 4.2 g/dL (3.5-5.0); ALT/SGPT 167 U/L (21-72); AST/SGOT 272 U/L (17-59); BLOOD UREA NITROGEN 9 mg/dL (9-20); GFR NON-AFRICAN AMERICAN > 60
[2018-08-22 16:15] LABS: BARBITURATES, UR NEGATIVE (NEGATIVE); OPIATES, UR NEGATIVE (NEGATIVE); PHENCYCLIDINE, UR NEGATIVE (NEGATIVE)
[2018-08-22 16:20] LABS: BENZODIAZEPINES, UR POSITIVE (NEGATIVE)
--- NOTE | 2018-08-22 17:22 | C.PDOC ---
History Of Present Illness 63 y/o male presents to ED requesting detox from alcohol. States he drinks 12 beers a day. and sticks of xanax for anxiety. Patient denies any medical complaints at this time. denies hi, si and ah,. Time Seen by Provider: 08/22/18 14:44 Chief Complaint (Nursing): Substance Abuse History Per: Patient History/Exam Limitations: no limitations Onset/Duration Of Symptoms: Days Current Symptoms Are (Timing): Still Present Past Medical History Reviewed: Historical Data, Nursing Documentation, Vital Signs Vital Signs: Last Vital Signs Temp 98.6 F 08/22/18 14:27 Pulse 75 08/22/18 14:27 Resp 18 08/22/18 14:27 BP 122/83 08/22/18 14:27 Pulse Ox 95 08/22/18 14:27 Primary Care Provider: FAMILY PROVIDER,NO - Medical History PMH: Depression Denies: Diabetes, Hepatitis, HIV, HTN, Chronic Kidney Disease, Seizures, Sexually Transmitted Disease Surgical History: Cholecystectomy - [facility] Procedures DETOXIFICATION SERVICES FOR SUBSTANCE ABUSE TREATMENT (05/15/18) GROUP BARREL DRILLER FOR SUBSTANCE ABUSE TREATMENT, PSYCHOEDUCATION (04/15/17) INDIV PSYCHOTHERAPY FOR SUBSTANCE ABUSE TREATMENT, SUPPORT (05/15/18) INDIV PSYCHOTHERAPY FOR SUBSTANCE ABUSE, COGNITIV BEHAVIORAL (05/15/18) INDIV PSYCHOTHERAPY FOR SUBSTANCE ABUSE, PSYCHOEDUCATION (05/15/18) MEDICATION MANAGEMENT (04/15/17) Family History: States: No Known Family Hx - Social History Hx Alcohol Use: Yes Hx Substance Use: Yes - Immunization History Hx Tetanus Toxoid Vaccination: No Hx Influenza Vaccination: No Hx Pneumococcal Vaccination: No Review Of Systems Constitutional: Negative for: Fever, Chills Cardiovascular: Negative for: Chest Pain Respiratory: Negative for: Shortness of Breath Gastrointestinal: Negative for: Nausea, Vomiting, Abdominal Pain Neurological: Negative for: Weakness, Numbness Psych: Positive for: Other (alcohol abuse). Negative for: Suicidal ideation Physical Exam - Physical Exam Appears: Non-toxic, No Acute Distress Skin: Dry Head: Normacephalic Eye(s): bilateral: PERRL Oral Mucosa: Dry Neck: Supple Cardiovascular: Rhythm Regular, No Murmur Respiratory: No Rales, No Rhonchi, No Wheezing, Other (clear to auscultation bilaterally) Gastrointestinal/Abdominal: Soft, No Tenderness, No Distention Extremity: Bilateral: Normal Color And Temperature Neurological/Psych: Oriented x3, Normal Speech, Normal Cognition ED Course And Treatment - Laboratory Results Result Diagrams: 08/22/18 15:23 08/22/18 15:23 Lab Results: Total Bilirubin 0.9 mg/dL (0.2-1.3) 08/22/18 15:23 AST 272 U/L (17-59) H D 08/22/18 15:23 ALT 167 U/L (21-72) H D 08/22/18 15:23 Alkaline Phosphatase 86 U/L (38-126) 08/22/18 15:23 Total Protein 6.8 g/dL (6.3-8.3) 08/22/18 15:23 Albumin 4.2 g/dL (3.5-5.0) 08/22/18 15:23 Globulin 2.6 gm/dL (2.2-3.9) 08/22/18 15:23 Albumin/Globulin Ratio 1.6 (1.0-2.1) 08/22/18 15:23 Urine Color Yellow (YELLOW) 08/22/18 15:50 Urine Clarity Clear (Clear) 08/22/18 15:50 Urine pH 6.0 (5.0-8.0) 08/22/18 15:50 Ur Specific [place] 1.003 (1.003-1.030) 08/22/18 15:50 Urine Protein Negative mg/dL (NEGATIVE) 08/22/18 15:50 Urine Glucose (UA) Normal mg/dL (Normal) 08/22/18 15:50 Urine Ketones Negative mg/dL (NEGATIVE) 08/22/18 15:50 Urine Blood Negative (NEGATIVE) 08/22/18 15:50 Urine Nitrate Negative (NEGATIVE) 08/22/18 15:50 Urine Bilirubin Negative (NEGATIVE) 08/22/18 15:50 Urine Urobilinogen Normal mg/dL (0.2-1.0) 08/22/18 15:50 Ur Leukocyte Esterase Neg [place]/uL (Negative) 08/22/18 15:50 Urine WBC (Auto) < 1 /hpf (0-5) 08/22/18 15:50 Urine RBC (Auto) < 1 /hpf (0-3) 08/22/18 15:50 O2 Sat by Pulse Oximetry: 95 (RA) Pulse Ox Interpretation: Normal Medical Decision Making Medical Decision Making: Plan: --Labs --UA crisis 1715 pt is medically cleared for detox admission; recommmend outpatient follow up for elevated liver enzymes. 1745 pt found to have eloped from ed. 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 - Scribe Statement The provider has reviewed the documentation as recorded by the Scribe Meggan León All medical record entries made by the [place] were at my direction and personally dictated by me. I have reviewed the chart and agree that the record accurately reflects my personal performance of the history, physical exam, medical decision making, and the department course for this patient. I have also personally directed, reviewed, and agree with the discharge instructions and disposition.
== END 2018-08-22 14:50 | disposition left against medical advice (07) ==
LOC: C.ER 14:19
DX: F10.10 Alcohol abuse, uncomplicated (principal); Y90.7 Blood alcohol level of 200-239 mg/100 ml; F32.9 Major depressive disorder, single episode, unspecified

== ENCOUNTER 2018-08-23 07:36 | Inpatient (IN) | payer OTHER ==
[2018-08-23 07:37] VITALS: BMI 38.0
--- NOTE | 2018-08-23 08:46 | C.PDOC ---
History Of Present Illness 63 year old male presents to ED requesting detox from alcohol and Xanax. Patient was seen in the ED for the same yesterday, but eloped. Patient returns today with no physical or psychiatric complaints. Patient denies homicidal or suicidal ideation. Time Seen by Provider: 08/23/18 08:02 Chief Complaint (Nursing): Substance Abuse History Per: Patient History/Exam Limitations: no limitations Onset/Duration Of Symptoms: Other (requesting detox) Current Symptoms Are (Timing): Still Present Suicide/Self Injury Attempted (Context): None Modifying Factor(s): Alcohol, Other (xanax) Associated Symptoms: denies: Suicidal Thoughts, Suicidal Plan Past Medical History Reviewed: Historical Data, Nursing Documentation, Vital Signs Vital Signs: Last Vital Signs Temp 97.3 F L 08/23/18 07:47 Pulse 83 08/23/18 07:47 Resp 18 08/23/18 07:47 BP 104/70 08/23/18 07:47 Pulse Ox 97 08/23/18 07:47 Primary Care Provider: Clinic,Med Surg - Medical History PMH: Depression Denies: Diabetes, Hepatitis, HIV, HTN, Chronic Kidney Disease, Seizures, Sexually Transmitted Disease Surgical History: Cholecystectomy - [facility] Procedures DETOXIFICATION SERVICES FOR SUBSTANCE ABUSE TREATMENT (05/15/18) GROUP COMMODITY MANAGEMENT SPECIALIST FOR SUBSTANCE ABUSE TREATMENT, PSYCHOEDUCATION (04/15/17) INDIV PSYCHOTHERAPY FOR SUBSTANCE ABUSE TREATMENT, SUPPORT (05/15/18) INDIV PSYCHOTHERAPY FOR SUBSTANCE ABUSE, COGNITIV BEHAVIORAL (05/15/18) INDIV PSYCHOTHERAPY FOR SUBSTANCE ABUSE, PSYCHOEDUCATION (05/15/18) MEDICATION MANAGEMENT (04/15/17) Family History: States: Unknown Family Hx - Social History Hx Alcohol Use: Yes Hx Substance Use: Yes (xanax) - Immunization History Hx Tetanus Toxoid Vaccination: No Hx Influenza Vaccination: No Hx Pneumococcal Vaccination: No Review Of Systems Constitutional: Negative for: Fever, Chills, Weakness Cardiovascular: Negative for: Chest Pain Respiratory: Negative for: Cough, Shortness of Breath Gastrointestinal: Negative for: Nausea, Vomiting, Abdominal Pain Neurological: Negative for: Weakness, Numbness, Headache, Dizziness Psych: Negative for: Suicidal ideation Physical Exam - Physical Exam Appears: Non-toxic, No Acute Distress Skin: Normal Color, Warm, Dry Head: Atraumatic, Normacephalic Eye(s): bilateral: Normal Inspection, PERRL, EOMI Neck: Normal ROM, Supple Chest: Symmetrical, No Deformity Cardiovascular: Rhythm Regular, No Murmur Respiratory: No Accessory Muscle Use, No Rales, No Rhonchi, No Wheezing Gastrointestinal/Abdominal: Bowel Sounds (normoactive), Soft, No Tenderness Extremity: Capillary Refill (<2 seconds) Pulses: Left Radial: Normal, Right Radial: Normal Neurological/Psych: Oriented x3, No Normal Speech (slurred speech) Gait: Steady ED Course And Treatment O2 Sat by Pulse Oximetry: 97 (in RA) Pulse Ox Interpretation: Normal Medical Decision Making Medical Decision Making: Impression: 63 year old male presents to ED requesting detox from alcohol and Xanax. Discussed case with Karoline from Crisis/Psych. Only need repeat vitals and urine drug screen for patient. 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 (Kathleen Bernal) - Scribe Statement The provider has reviewed the documentation as recorded by the Scribe (Kathleen Bernal) All medical record entries made by the Scribe were at my direction and personally dictated by me. I have reviewed the chart and agree that the record accurately reflects my personal performance of the history, physical exam, medical decision making, and the department course for this patient. I have also personally directed, reviewed, and agree with the discharge instructions and disposition.
[2018-08-23 10:06] LABS: BARBITURATES, UR NEGATIVE (NEGATIVE); OPIATES, UR NEGATIVE (NEGATIVE); PHENCYCLIDINE, UR NEGATIVE (NEGATIVE)
[2018-08-23 10:07] LABS: BENZODIAZEPINES, UR POSITIVE (NEGATIVE)
--- NOTE | 2018-08-23 12:34 | PCM.PSYCH ---
Initial Psychiatric Evaluation - Initial Psychiatric Evaluation Type of Admission: Voluntary Legal Status: Capacity Chief Complaint (in patient's own words): "Alcohol" History of Present Illness and Precipitating Events: Pt is seen, chart reviewed, and case discussed with staff. 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 He last drank from yesterday until this morning about 2 six packs of beer and 1 L of whiskey. He has been drinking heavily off and on for the past 40 years. He uses about 2 to 3 tablets of Xanax. He used to get them prescribed, then he went doctor shopping, and currently buys it off the street. Pt was admitted 05/15/18 to detox for alcohol and benzodiazepine use. He was motivated to quit. He was aloof but agreed with [facility]. Since discharge he has "not done much of anything and went right back to using. He has never been to rehab only 1x before to detox at [facility]. He is currently feeling dizzy, weak, nauseous, vomited clear yellow liquid 5x since this morning, has diffuse body aches, severe 8/10 headache, and has gastric reflux pain. He has trouble sleeping, feelings of guilt and hopelessness, fatigue, difficulty concentrating, appetite and weight loss, irritability, and anxiety. He has hx of DTs (year) No other drug or tobacco use hx. He smokes marijuana sometimes. No trauma hx. Past psych hx: Anxiety, depression, alcohol use disorder, PTSD Fam psych hx: All of them have trouble with alcohol use, anxiety, and de pression. Med Hx: Cholecystitis PSHx: Cholecystectomy, rhinoplasty All: Chlordiazepoxide Current Medications: Active Medications Generic Name Dose Route Start Last Admin Trade Name Freq PRN Reason Stop Dose Admin Clonidine HCl 0.1 mg 08/23/18 12:29 Catapres PO Q4H PRN Symptoms of alcohol withdrawl Folic Acid 1 mg 08/23/18 12:30 Folic Acid PO DAILY GAL Lorazepam 1 mg 08/23/18 12:29 Ativan PO Q4H PRN Symptoms of alcohol withdrawl Lorazepam 0 mg 08/23/18 12:30 Ativan PO 08/27/18 12:29 .TAPER GAL Taper Multivitamins 1 tab 08/23/18 12:30 Hexavitamin PO DAILY GAL Thiamine HCl 100 mg 08/23/18 12:30 Vitamin B1 Tab PO DAILY GAL Trazodone HCl 50 mg 08/23/18 12:29 Desyrel PO HS PRN Insomnia Past Psychiatric History - Past Psychiatric History Pertinent Medical Hx (Current Medical&Sleep Prob, Allergies): Allergies Allergy/AdvReac Type Severity Reaction Status Date / Time chlordiazepoxide Allergy VOMITING Verified 08/23/18 07:53 [From Librium] No Known Home Med 08/23/18 Review of Systems - Psychiatric Psychiatric: Abnormal Sleep Pattern, Anhedonia, Anxiety, Behavioral Changes, Depression, Difficulty Concentrating, Irritability. absent: Hallucinations, Homicidal Ideation, Suicidal Ideation Mental Status Examination - Personal Presentation Personal Presentation: Looks stated age - Affect Affect: Constricted - Motor Activity Motor Activity: Calm - Reliability in Providing Information Reliability in Providing Information: Good - Speech Speech: Organized - Mood Mood: Depressed, Anxious - Formal Thought Process Formal Thought Process: No Impairment - Cognitive Functions Orientation: Person, Place, Situation, Time Sensorium: Alert Attention/Concentration: Easily distracted Estimate of Intelligence: Average Judgement: Intact, as evidence by: Insight regarding need for hospitalization Memory: Recent intact, as evidence by: Ability to recall events of the day, Remote intact, as evidenced by: Abilit to recall sig. 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 Attend groups and activities Supportive therapy and psychoeducation [place] for abstinence CBT for relapse prevention Encourage MAT Refer to rehab or IOP, and self-help groups Teach healthy lifestyle methods, i.e. diet, exercise, meditation Smoking cessation with [place] Nicotine patch if needed 34 min Projected ELOS: 5 days Prognosis: good w treatment - Smoking Cessation Smoking Cessation Initiated: Yes
[2018-08-23] MEDS: Multiple Vitamins Tab PO SCH (13:30)
--- NOTE | 2018-08-23 14:29 | PCM.BM ---
<Lucina Desai - Last Filed: 08/23/18 14:27> Treatment Plan Problems - Problems identified on initial assessmt anxiety related to substance use Date Initiated: 08/23/18 Assessment reference: NA Status: Active Defensive Coping Date Initiated: 08/23/18 Assessment reference: NA Status: Active (Know) Knowledge Deficit: Alcohol Use Date Initiated: 08/23/18 Assessment reference: NA Status: Active Treatment assets and liabiliti Patient Assests: cooperative, ADL independent, negotiates basic needs, cognitively intact Patient Liabilities: substance abuse - Milieu Protocol Maintain good personal hygiene: daily Encourage regular showers, daily Remind patient to perform daily oral care, daily Assist patient to perform ADL's Conduct patient checks and document Observation sheet: Q15 minutes Maintain personal safety: every shift Educate patient to report safety concerns to staff, every shift Monitor environment for contraband/sharps Medication safety: Monitor for expected outcome, potential side effects: every shift, Assess barriers to learning: every shift, Assess readiness for medication education: every shift <Cassie Hayes - Last Filed: 08/24/18 13:36> Family Contact Family involvement: Famliy/SO not involved - Goals for Treatment Patient goals for treatment: Complete detox and transition to o/p treatment supplemented with AA meetings and his sponsor. Discharge/Continuing Care - Education Needs Education Needs: Patient Medication, Patient Diagnosis/Disease Process, Patient Coping Skills, Patient Anger Management skills, Patient Placement options, Patient Community resources, Patient Other (chronic relapse prevention) - Discharge Discharge Criteria: Ability to care for self, No longer exhibiting s/s of withdrawal, Reduction of target symptoms Discharge to:: Home - Treatment Team Participation Patient/Family/SO Statement: 08/24/18 13:38 "I have a really good network in AA with a really good sponsor. I don't think I need therapy but maybe I do..." Discussed with Family/SO: No Was Patient/Family/SO present at Treatment Team Meeting: Yes <Eloina Zepeda - Last Filed: 08/26/18 12:56> - Diagnosis (1) Alcohol use disorder, severe, dependence Status: Acute Interventions: 08/24/18 12:56 * Assess 7x/week regarding severity of withdrawal * Educate regarding risks, benefits, side effects and alternatives of medications * Use Motivational Interviewing for abstinence * Use CBT for relapse prevention * Medication management for withdrawal symptoms * Encourage medication assisted treatment *
[2018-08-23] MEDS: Aluminum Hydroxide/Magnesium Hydroxide Susp (30 mL) PO PRN (22:42)
[2018-08-24] MEDS: Multiple Vitamins Tab PO SCH (09:00)
--- NOTE | 2018-08-24 09:50 | PCM.PYCHPN ---
Psychiatric Progress Note - Psychiatric Progress Note Patient seen today, length of contact: 16 min Patient Chief Complaint: "I couldn't sleep" Problems Identified/Issues Discussed: The pt is seen, chart reviewed, case is discussed with staff. The pt is compliant with medications and reports no side-effects. Symptoms are improving but needs more time to stabilize and to avoid relapse. Pt attends groups and activities. Support given, psycho-education provided. After care discussed. Medication Change: Yes (detox changes daily) Medical Record Reviewed: Yes Mental Status Examination - Cognitive Function Orientation: Person, Place, Situation, Time Memory: Intact Attention: WNL Concentration: Poor Association: WNL Fund of Knowledge: WNL - Mood Mood: Depressed, Anxious - Affect Affect: Constricted - Speech Speech: Appropriate - Formal Thought Process Formal Thought Process: No Impairment - Suicidal Ideation Suicidal Ideation: No - Homicidal Ideation Homicidal Ideation: No Goal/Treatment Plan - Goal/Treatment Plan Need for Continued Stay: Discharge may exacerbated symptoms, Severe functional impairment Progress Toward Problem(s) and Goals/Treatment Plan: Taper with ativan (LFTs are high) Gabapentin for augmentation if needed As needed medications All risks, benefits and alternatives of the meds discussed, and the pt agreed and understood. Attend groups and activities Supportive therapy and psychoeducation [place] for abstinence CBT for relapse prevention Encourage MAT Refer to rehab or IOP, and self-help groups Teach healthy lifestyle methods, i.e. diet, exercise, meditation Smoking cessation with [place] Nicotine patch if needed
[2018-08-25] MEDS: Multiple Vitamins Tab PO SCH (09:27)
[2018-08-25] MEDS ORDERED: Petrolatum Oint Foilpak (5 gm) TOP PRN (10:00)
[2018-08-25] MEDS: Aluminum Hydroxide/Magnesium Hydroxide Susp (30 mL) PO PRN (11:41)
--- NOTE | 2018-08-25 14:14 | PCM.PYCHPN ---
Psychiatric Progress Note - Psychiatric Progress Note Patient seen today, length of contact: 16 min Patient Chief Complaint: "I feel better" Problems Identified/Issues Discussed: The pt is seen, chart reviewed, case discussed with staff. Support and psychoeducation given, CBT and [place] used briefly Pt is improving slowly and needs more time, still has ongoing symptoms. No SEs from medications, risks discussed. After care discussed Medication Change: Yes (detox changes daily) Medical Record Reviewed: Yes Mental Status Examination - Cognitive Function Orientation: Person, Place, Situation, Time Memory: Intact Attention: WNL Concentration: Poor Association: WNL Fund of Knowledge: WNL - Mood Mood: Depressed, Anxious - Affect Affect: Constricted - Speech Speech: Appropriate - Formal Thought Process Formal Thought Process: No Impairment - Suicidal Ideation Suicidal Ideation: No - Homicidal Ideation Homicidal Ideation: No Goal/Treatment Plan - Goal/Treatment Plan Need for Continued Stay: Discharge may exacerbated symptoms, Severe functional impairment Progress Toward Problem(s) and Goals/Treatment Plan: Taper with ativan (LFTs are high) Gabapentin for augmentation if needed As needed medications All risks, benefits and alternatives of the meds discussed, and the pt agreed and understood. Attend groups and activities Supportive therapy and psychoeducation [place] for abstinence CBT for relapse prevention Encourage MAT Refer to rehab or IOP, and self-help groups Teach healthy lifestyle methods, i.e. diet, exercise, meditation Smoking cessation with [place] Nicotine patch if needed Estimated Date of D/C: 08/27/18
[2018-08-26] MEDS: Multiple Vitamins Tab PO SCH (09:27)
--- NOTE | 2018-08-26 12:51 | PCM.PYCHPN ---
Psychiatric Progress Note - Psychiatric Progress Note Patient seen today, length of contact: 17 min Patient Chief Complaint: "I am anxious" Problems Identified/Issues Discussed: The pt is seen, chart reviewed, case is discussed with staff. The pt is compliant with medications and reports no side-effects. Symptoms are improving but needs more time to stabilize and to avoid relapse. Meds adjusted yesterday and again today b/c tomorrow, his dc date,. he wants to leave very early Pt attends groups and activities. Support given, psycho-education provided. After care discussed. He will go to outpt Medication Change: Yes (detox changes daily) Medical Record Reviewed: Yes Mental Status Examination - Cognitive Function Orientation: Person, Place, Situation, Time Memory: Intact Attention: WNL Concentration: Poor Association: WNL Fund of Knowledge: WNL - Mood Mood: Depressed, Anxious - Affect Affect: Constricted - Speech Speech: Appropriate - Formal Thought Process Formal Thought Process: No Impairment - Suicidal Ideation Suicidal Ideation: No - Homicidal Ideation Homicidal Ideation: No Goal/Treatment Plan - Goal/Treatment Plan Need for Continued Stay: Discharge may exacerbated symptoms, Severe functional impairment Progress Toward Problem(s) and Goals/Treatment Plan: Taper with ativan (LFTs are high) Gabapentin for augmentation if needed As needed medications All risks, benefits and alternatives of the meds discussed, and the pt agreed and understood. Attend groups and activities Supportive therapy and psychoeducation [place] for abstinence CBT for relapse prevention Encourage MAT Refer to rehab or IOP, and self-help groups Teach healthy lifestyle methods, i.e. diet, exercise, meditation Smoking cessation with [place] Nicotine patch if needed
[2018-08-26] MEDS: Aluminum Hydroxide/Magnesium Hydroxide Susp (30 mL) PO PRN (21:22)
[2018-08-26 22:08] VITALS: BP 121/80; PULSE 84; RESP 18; TEMP 97.1
--- NOTE | 2018-08-27 09:01 | PCM.PYCHDC ---
Mental Status Examination - Mental Status Examination Orientation: Person Discharge Summary - Discharge Note Consultations:: List each consultation separately and include: 1. Reason for request. 2. Findings. 3. Follow-up Summary of Hospital Course include:: 1. Description of specific treatment plan utilized for patients during their course of treatmen. 2. Summarize the time- course for resolution of acute symptoms and/or regressed behaviors. 3. Describe issues identified and worked on during hospitalization. 4. Describe medication utilized. 5. Describe medical problems identified and treated. 6. Reassessment of suicide risk Summary of Hospital Course: Pt is seen, chart reviewed, and case discussed with staff. 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 He last drank from yesterday until this morning about 2 six packs of beer and 1 L of whiskey. He has been drinking heavily off and on for the past 40 years. He uses about 2 to 3 tablets of Xanax. He used to get them prescribed, then he went doctor shopping, and currently buys it off the street. Pt was admitted 05/15/18 to detox for alcohol and benzodiazepine use. He was motivated to quit. He was aloof but agreed with [facility]. Since discharge he has "not done much of anything and went right back to using. He has never been to rehab only 1x before to detox at [facility]. He is currently feeling dizzy, weak, nauseous, vomited clear yellow liquid 5x since this morning, has diffuse body aches, severe 8/10 headache, and has gastric reflux pain. He has trouble sleeping, feelings of guilt and hopelessness, fatigue, difficulty concentrating, appetite and weight loss, irritability, and anxiety. He has hx of DTs (year) No other drug or tobacco use hx. He smokes marijuana sometimes. No trauma hx. Past psych hx: Anxiety, depression, alcohol use disorder, PTSD Fam psych hx: All of them have trouble with alcohol use, anxiety, and depression. Med Hx: Cholecystitis PSHx: Cholecystectomy, rhinoplasty All: Chlordiazepoxide He will attend [facility] IF he decides to. Currently he only agreed to AA, as he was 'clean for years" with AA only,. Risks discussed. 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 Attend groups and activities Supportive therapy and psychoeducation [place] for abstinence CBT for relapse prevention Encourage MAT Refer to rehab or IOP, and self-help groups Teach healthy lifestyle methods, i.e. diet, exercise, meditation Smoking cessation with [place] Nicotine patch if needed Prescriptions/Medication Reconciliation: hydrOXYzine HCl [Atarax] 50 mg PO DAILY PRN #30 tab PRN Reason: Anxiety Mirtazapine [Remeron] 15 mg PO HS #30 tab traZODone [Desyrel] 100 mg PO HS PRN #30 tab PRN Reason: Insomnia
[2018-08-27 11:39] VITALS: O2SAT 97
== END 2018-08-27 06:30 | disposition home or self-care (01) | DRG 895 ==
LOC: C.ER 07:36 → C.7D 12:15 → C.7T 13:26 → C.7D 13:27
PROVIDERS: ADMIT Psychiatry & Neurology Psychiatry; ATTEND Psychiatry & Neurology Psychiatry
PROC: HZ2ZZZZ Detoxification Services for Substance Abuse Treatment (ICD-10-PCS; principal; 2018-08-23)
PROC: HZ52ZZZ Individual Psychotherapy for Substance Abuse Treatment, Cognitive-Behavioral (ICD-10-PCS; 2018-08-23)
PROC: HZ59ZZZ Individual Psychotherapy for Substance Abuse Treatment, Supportive (ICD-10-PCS; 2018-08-23)
PROC: HZ56ZZZ Individual Psychotherapy for Substance Abuse Treatment, Psychoeducation (ICD-10-PCS; 2018-08-23)
PROC: HZ42ZZZ Group Counseling for Substance Abuse Treatment, Cognitive-Behavioral (ICD-10-PCS; 2018-08-23)
PROC: HZ46ZZZ Group Counseling for Substance Abuse Treatment, Psychoeducation (ICD-10-PCS; 2018-08-23)
PROC: GZHZZZZ Group Psychotherapy (ICD-10-PCS; 2018-08-23)
PROC: GZ58ZZZ Individual Psychotherapy, Cognitive-Behavioral (ICD-10-PCS; 2018-08-23)
PROC: GZ56ZZZ Individual Psychotherapy, Supportive (ICD-10-PCS; 2018-08-23)
DX: F10.230 Alcohol dependence with withdrawal, uncomplicated (principal); Y90.6 Blood alcohol level of 120-199 mg/100 ml; F13.230 Sedative, hypnotic or anxiolytic dependence with withdrawal, uncomplicated; F32.9 Major depressive disorder, single episode, unspecified; F43.10 Post-traumatic stress disorder, unspecified; F41.1 Generalized anxiety disorder